=== PATIENT | male | born 1955 | race Caucasian/White ===

== ENCOUNTER → 2021-08-05 | Outpatient (CLI) | payer BC, SELFPAY ==
[2021-08-08 15:08] LABS: QNTFERON TB Mitogen Value > 10.00 IU/mL (.); QNTFERON TB Nil Value 0.04 IU/mL (.); QNTFERON TB2+ Ag Value 0.08 IU/mL (.)
[2021-08-08 16:37] LABS: QNTIFERON TB Positive Criteria Negative (Negative)
== END | disposition home or self-care (01) ==
LOC: MTLAB 08:30
PROVIDERS: PCP Family Medicine; Referring Provider Internal Medicine Rheumatology; Visit Provider Internal Medicine Rheumatology
DX: M06.00 Rheumatoid arthritis without rheumatoid factor, unspecified site (principal); I26.99 Other pulmonary embolism without acute cor pulmonale; F32.89 Other specified depressive episodes; E03.9 Hypothyroidism, unspecified; H35.30 Unspecified macular degeneration; Z79.899 Other long term (current) drug therapy
CPT/HCPCS: 36415; 86480